=== PATIENT | female | born 1970 ===

== ENCOUNTER 2016-11-07 08:42 | Emergency (ER) | payer OTHER ==
[2016-11-07] MEDS ORDERED: DIPHENHYDRAMINE 50 MG/ML VIAL ONE (09:30)
[2016-11-07] MEDS ORDERED: METHYLPRED SOD SUCC 125 MG/2 ML VIAL ONE (09:31)
== END 2016-11-07 10:34 | disposition home or self-care (01) ==
LOC: ER 08:42
DX: T78.49XA Other allergy, initial encounter (principal); T78.3XXA Angioneurotic edema, initial encounter; R21 Rash and other nonspecific skin eruption; E03.9 Hypothyroidism, unspecified; Z79.899 Other long term (current) drug therapy
CPT/HCPCS: 96374; 96375; 99283; J2930